=== PATIENT | female | born 1935 | race Caucasian/White ===

== ENCOUNTER → 2024-01-06 09:57 | Outpatient (REF) | payer MEDICARE, SELFPAY ==
[2024-01-06 12:23] LABS: Free T4 1.34 ng/dl (0.78-2.19)
== END ==
LOC: OLABPV 09:57
PROVIDERS: ATTENDING PHYSICIAN Internal Medicine Endocrinology, Diabetes & Metabolism; FAMILY PHYSICIAN Nurse Practitioner Adult Health
DX: E04.2 Nontoxic multinodular goiter (principal); E06.3 Autoimmune thyroiditis
CPT/HCPCS: 36415; 84439; 84443

== ENCOUNTER → 2024-01-26 10:06 | Outpatient (REF) | payer MEDICARE, SELFPAY | LOC: RCS 10:06 | PROVIDERS: ATTENDING PHYSICIAN Internal Medicine Interventional Cardiology; FAMILY PHYSICIAN Nurse Practitioner Adult Health | DX: I10 Essential (primary) hypertension (principal); E78.2 Mixed hyperlipidemia; I48.0 Paroxysmal atrial fibrillation | CPT/HCPCS: 93308; 93321; 93325 ==

== ENCOUNTER 2024-02-20 08:28 | Emergency (ER) | payer MEDICARE, SELFPAY ==
[2024-02-20] VITALS (7 sets, daily range): BP systolic 134–155; BP diastolic 68–92; BMI 30.7
--- NOTE | 2024-02-20 09:20 | ED.GENMED ---
History of Present Illness
General
Chief Complaint: Abdominal Symptoms
Time Seen by Provider: 02/20/24 09:05
Travel History
Have you had any contact with someone who has COVID-19?: No
Do you have any symptoms of coronavirus? Fever > 100 degrees, chills, cough, shortness of breath, sore throat, loss of taste or smell, muscle aches, or headache?: No
History of Present Illness
History of Present Illness:
88-year-old female with history of PE on Eliquis presents to the emergency department for evaluation of lower abdominal pain ongoing for the past week. She notes shaking chills last night and large-volume hematochezia this morning. Denies any
objective fever, chest pain, shortness of breath, nausea, or vomiting. No history of abdominal surgeries.
Past History
Past History
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
thyroidectomy in 2013, ESTEVAN on CPAP)
ED Past Surgical History: Other ( IVC filter status post removal in 2012, partial thyroidectomy in 2013)
Social History
Tobacco: Non-smoker
Alcohol: None
Drug: None
Personal:
Living: with family
Family History
Family History: Other (nc)
Review of Systems
Review of Systems
Allergies reviewed?: Yes
All Other Systems: ROS reviewed and negative except as documented in HPI and ROS
Phy Exam
Physical Exam
Physical Exam:
GEN: Well appearing, NAD, WDWN
Eyes: PERRLA, EOMs intact, no scleral icterus
HENT: NCAT, oral mucosa moist
Lungs: CTAB, no wheezes, rales, rhonchi, normal chest wall excursion
Cardiac: Tachycardic, regular, no M/R/G, no peripheral edema. Radial pulses 2+ bilat
Abdomen: S, NT, ND, NABS, no masses or hepatosplenomegaly
Neuro: AO x 3
MSK: No gross deformity or ecchymosis. No edema. No digital clubbing
Skin: No rashes, petechiae. Normal color, no pallor or jaundice.
Psych: Calm, cooperative, proper hygiene
Course
Orders/Labs/Results
Orders:
Orders
02/20/24 09:18
CT Abd/Pel (IV only)-DH only Urgent
Comment:
Reason For Exam: suprapubic pain/hematochezia
0.9% Sodium Chloride 1000 ml [Nss] 1,000 ml IV BOLUS
02/20/24 09:24
Complete Blood Count/With Diff Urgent
Comprehensive Metabolic Panel Urgent
Lactic Acid Urgent
Lipase Urgent
02/20/24 12:03
Stool Culture Urgent
IAM Source: Feces/Stool
Specimen Description:
02/20/24 12:05
Amoxicillin 875 mg/Clav 125 mg [Augmentin 875 mg/125 mg] 1 tablet PO NOW STA
Abnormal Lab Results
02/20/24
09:24
MCHC 32.2 L g/dL
(33.0-37.0)
Absolute Lymphs (auto) 0.9 L 10^3/uL
(1.2-3.4)
Neutrophils % 77.2 H %
(42.2-75.2)
Lymphocytes % 15.4 L %
(20.5-51.1)
BUN 18 H mg/dl
(7-17)
Glucose 134 H mg/dl
(70-99)
02/20/24 09:24
02/20/24 09:24
Vital Signs
Initial and Last Documented VS:
Initial Vital Signs
Temp Pulse Resp BP Pulse Ox
97.7 F 111 18 138/92 96
02/20/24 08:30 02/20/24 08:30 02/20/24 08:30 02/20/24 08:30 02/20/24 08:30
Last Documented Vital Signs
Temp Pulse Resp BP Pulse Ox
97.7 F 97 14 154/76 96
02/20/24 09:14 02/20/24 11:00 02/20/24 11:00 02/20/24 11:00 02/20/24 11:00
MDM/Problems Addressed
MDM/Problems Addressed:
Patient's labs are reassuring. Her workup reveals uncomplicated colitis. We did attempt to obtain a stool specimen in the emergency department however the patient was unable to provide an adequate specimen as it was contaminated with urine. Will
start her on empiric Augmentin, discussed use of brat diet and primary care follow-up. Encouraged emergency department return should her symptoms worsen particularly hematochezia given her anticoagulant use
*Critical Care Note
Total Time (30-74mins, 75-104mins- exclusive of procedures): Not Applicable
ED Attending Note
-
Portions of this chart may have been created with voice recognition software.� Occasional wrong word or��sound alike� substitutions may have occurred due to the inherent limitations of voice recognition software.
Discharge Plan
Departure
Patient Disposition: Home (Routine Discharge)
Date of Disposition: 02/20/24
Time of Disposition: 12:04
Patient with high blood pressure during this ER visit?: No
Discharge Problem:
Colitis
Instructions: Colitis (DC)
Prescriptions:
New
amoxicillin-pot clavulanate 875-125 mg tablet
1 tab PO BID 7 Days Qty: 14 0RF
No Action
polyethylene glycol 3350 17 GRAMS powder in packet
17 grams PO DAILY
pravastatin 10 MG tablet
10 mg PO QPM
levothyroxine 25 MCG tablet
25 mcg PO DAILY
multivitamin Tablet
1 tab PO DAILY
omega-3 fatty acids Capsule
1,000 mg PO DAILY
Hold Instructions: Resume on 09/21/22.
metoprolol tartrate 25 mg tablet
25 mg PO BID Qty: 60 0RF
Patient Comments:
patient does not believe she takes this medication
Eliquis 5 mg tablet
5 mg PO BID Qty: 60 0RF
docusate sodium [Colace] 100 mg capsule
100 mg PO DAILY
acetaminophen [Acetaminophen Extra Strength] 500 mg tablet
1,000 mg PO Q6H PRN (Reason: as directed)
Rx Instructions:
DO NOT exceed >4000 mg daily.
Referrals:
Latasha Wong CRNP [Family Provider] -
Interventions
Interventions:
*Risk Screen - Suicide Last Done: 02/20/24 08:30
*General Assessment Last Done: 02/20/24 08:30
*Neglect/Abuse Screening Last Done: 02/20/24 09:08
ED- Fall Risk Assessment Last Done: 02/20/24 09:11
*ED COVID-19 Vaccine History Last Done: 02/20/24 08:30
W[place]-Gsblks-Jcakwzjnhk Assessment Last Done: 02/20/24 09:15
Discharge Date and Time
Print Language: [place]
[2024-02-20] MEDS: NSS 1000 IV (09:24)
[2024-02-20 09:52] LABS: % Basophils 0.2 % (0-2); % Eosinophils 1.2 % (0-6); % Immature Granulocytes 0.2 % (0-0.5); % Lymphocytes 15.4 % (20.5-51.1); % Monocytes 5.8 % (1.7-9.3); % Neutrophils 77.2 % (42.2-75.2); Absolute Eosinophils 0.1 10^3/uL (0-0.7); Absolute Lymphocytes 0.9 10^3/uL (1.2-3.4); Absolute Monocytes 0.3 10^3/uL (0.1-0.6); Absolute Neutrophils 4.4 10^3/uL (1.4-6.5); Hematocrit 42.3 % (37.0-47.0); Hemoglobin 13.6 g/dL (12.0-16.0); Mean Corp Hgb Conc. 32.2 g/dL (33.0-37.0); Mean Corpuscular Hgb 27.8 pg (27.0-31.0); Mean Corpuscular Volume 86.5 fL (81.0-99.0); Mean Platelet Volume 10.2 fL (7.4-10.4); Nucleated Red Blood Cells % 0 %; Platelet Count 162 10^3/uL (130-400); Red Blood Cell Count 4.89 10^6/uL (4.20-5.40); Red Cell Dist. Width 13.4 % (11.5-14.5); White Blood Cell Count 5.7 10^3/uL (4.8-10.8)
[2024-02-20 09:58] LABS: ALT (SGPT) 18 U/L (0-35); AST (SGOT) 31 U/L (14-36); Albumin 3.7 g/dl (3.5-5.0); Alkaline Phosphatase 95 U/L (38-126); Blood Urea Nitrogen 18 mg/dl (7-17); Calcium 9.5 mg/dl (8.4-10.2); Carbon Dioxide 29 mmol/L (22-30); Chloride 100 mmol/L (98-107); Estimated Creatinine Clearance 69 ml/min; Glucose 134 mg/dl (70-99); Lipase 151 U/L (23-300); Potassium 4.3 mmol/L (3.5-5.1); Sodium 135 mmol/L (135-145); Total Bilirubin 0.3 mg/dl (0.2-1.3); Total Protein 6.9 g/dl (6.3-8.2); eGFR > 60.00
[2024-02-20 10:06] LABS: Lactic Acid 0.9 mmol/L (0.7-2.0)
[2024-02-20] MEDS: AUGMENTIN 875 MG/125 MG 1 TABLET PO (12:20)
== END 2024-02-20 12:30 | disposition home or self-care (01) ==
LOC: EMR 08:28
PROVIDERS: Physician Assistant; EMERGENCY PHYSICIAN Emergency Medicine; FAMILY PHYSICIAN Nurse Practitioner Adult Health
DX: K52.9 Noninfective gastroenteritis and colitis, unspecified (principal); K21.9 Gastro-esophageal reflux disease without esophagitis; E78.00 Pure hypercholesterolemia, unspecified; G47.33 Obstructive sleep apnea (adult) (pediatric); Z79.01 Long term (current) use of anticoagulants; Z86.711 Personal history of pulmonary embolism; Z96.653 Presence of artificial knee joint, bilateral
CPT/HCPCS: 99284; 96360; 74177; 80053; 83605; 83690; 85025; Q9967

== ENCOUNTER → 2024-03-27 15:35 | Outpatient (REF) | payer MEDICARE, SELFPAY ==
[2024-03-27 16:10] LABS: ALT (SGPT) 16 U/L (0-35); AST (SGOT) 31 U/L (14-36); Albumin 3.8 g/dl (3.5-5.0); Alkaline Phosphatase 77 U/L (38-126); Blood Urea Nitrogen 17 mg/dl (7-17); Calcium 9.3 mg/dl (8.4-10.2); Carbon Dioxide 31 mmol/L (22-30); Chloride 100 mmol/L (98-107); Glucose 98 mg/dl (70-99); HDL Cholesterol 47 mg/dl; Iron 93 ug/dl (37-170); LDL Cholesterol, Calculated 144 mg/dl; Potassium 4.7 mmol/L (3.5-5.1); Sodium 133 mmol/L (135-145); Total Bilirubin 0.4 mg/dl (0.2-1.3); Total Cholesterol 216 mg/dl (50-199); Total Protein 6.8 g/dl (6.3-8.2); Triglyceride 125 mg/dl (10-149); Very Low Density Lipoprotein 25 mg/dl (0-30); eGFR > 60.00
[2024-03-27 16:15] LABS: % Basophils 0.3 % (0-2); % Eosinophils 6.8 % (0-6); % Lymphocytes 38.1 % (20.5-51.1); % Monocytes 9.8 % (1.7-9.3); Absolute Eosinophils 0.2 10^3/uL (0-0.7); Absolute Lymphocytes 1.3 10^3/uL (1.2-3.4); Absolute Monocytes 0.3 10^3/uL (0.1-0.6); Absolute Neutrophils 1.5 10^3/uL (1.4-6.5); Hematocrit 40.1 % (37.0-47.0); Hemoglobin 13.1 g/dL (12.0-16.0); Mean Corp Hgb Conc. 32.7 g/dL (33.0-37.0); Mean Corpuscular Hgb 27.9 pg (27.0-31.0); Mean Corpuscular Volume 85.5 fL (81.0-99.0); Mean Platelet Volume 11.3 fL (7.4-10.4); Nucleated Red Blood Cells % 0 %; Platelet Count 188 10^3/uL (130-400); Red Blood Cell Count 4.69 10^6/uL (4.20-5.40); Red Cell Dist. Width 13.8 % (11.5-14.5); White Blood Cell Count 3.4 10^3/uL (4.8-10.8)
[2024-03-27 16:19] LABS: Percent Saturation 29 % (20-50); Total Iron Binding Capacity 317 ug/dl (265-497)
[2024-03-27 16:48] LABS: Vitamin D, 25-OH*** 53.3 ng/mL (30-80)
[2024-03-27 17:02] LABS: TSH Reflex To Free T4 3.75 uIU/ml (0.47-4.68)
[2024-03-27 17:21] LABS: Vitamin B12 914 pg/ml (239-931)
[2024-03-28 11:09] LABS: Glycohemoglobin (HgbA1c) 5.9 % (4.0-5.6)
== END ==
LOC: OLABPV 15:35
PROVIDERS: ATTENDING PHYSICIAN Nurse Practitioner Adult Health
DX: E89.0 Postprocedural hypothyroidism (principal); Z00.00 Encounter for general adult medical examination without abnormal findings; R41.3 Other amnesia; E78.00 Pure hypercholesterolemia, unspecified; R73.09 Other abnormal glucose; R19.5 Other fecal abnormalities; E53.8 Deficiency of other specified B group vitamins; Z79.899 Other long term (current) drug therapy; E55.9 Vitamin D deficiency, unspecified
CPT/HCPCS: 36415; 80053; 80061; 82306; 82607; 83036; 83540; 83550; 84443; 85025

== ENCOUNTER 2024-06-16 14:24 | Emergency (ER) | payer MEDICARE, SELFPAY ==
[2024-06-16 14:30] VITALS: BP 142/63
--- NOTE | 2024-06-16 16:14 | ED.GENMED ---
History of Present Illness
General
Chief Complaint: Fall
Source: patient and spouse
Exam Limitations: none
Time Seen by Provider: 06/16/24 15:07
Nursing documentation reviewed up to this point in time: agreed with
History of Present Illness
History of Present Illness:
89-year-old female presenting to the emergency department after trip and fall hitting her right forehead no loss of consciousness patient is on Eliquis. Denies any additional symptoms but has had bleeding to her right forehead. Recent tetanus shot
a few months ago. No neck pain numbness or weakness no chest pain
Past History
Past History
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
thyroidectomy in 2013, ESTEVAN on CPAP)
ED Past Surgical History: Other ( IVC filter status post removal in 2012, partial thyroidectomy in 2013)
Social History
Tobacco: Non-smoker
Alcohol: None
Drug: None
Personal:
Living: with family
Family History
Family History: Other (nc)
Review of Systems
Review of Systems
Allergies reviewed?: Yes
All Other Systems: ROS reviewed and negative except as documented in HPI and ROS
Phy Exam
Physical Exam
Physical Exam:
GENERAL: Alert , in no apparent distress
EYE: pupils equal and reactive
NECK: Supple, no significant adenopathy.
ENT: Laceration to the right forehead surrounded by abrasion roughly 3 cm in length. Subcutaneous in depth, o/p clr, mmm.
CARDIAC: Regular rate and rhythm .
LUNGS: Clear breath sounds bilaterally, no acute respiratory distress, no wheezes/rales/rhonchi
ABDOMEN: Soft, without focal tenderness, no r/g, no cvat
NEUROLOGICAL: Alert and oriented, no focal neuro deficits
SKIN: Warm and dry, skin intact.
MUSCULOSKELETAL: No edema, well perfused.
PSYCH: Normal and appropriate interaction.
Course
Orders/Labs/Results
Orders:
Orders
06/16/24 14:32
CT Head W/o Iv Contrast Urgent
Comment:
Reason For Exam: fell hit head on bld thinner for hx of bld clots
Vital Signs
Initial and Last Documented VS:
Initial Vital Signs
Temp Pulse Resp BP Pulse Ox
98.3 F 85 16 142/63 98
06/16/24 14:30 06/16/24 14:30 06/16/24 14:30 06/16/24 14:30 06/16/24 14:30
Last Documented Vital Signs
Temp Pulse Resp BP Pulse Ox
98.3 F 78 18 152/72 98
06/16/24 14:30 06/16/24 16:41 06/16/24 16:41 06/16/24 16:41 06/16/24 16:41
Procedures
Laceration Closure
Right Superior Anterior Lateral Face:
Status of Wound: clean
Size of Wound in cm: 3
Description of Wound Edges: surrounded by abrasion
Preparation: cleaned with saline
Anesthesia: 1% Lidocaine with epi
Revision/Debridement: minor revision and irrigate-direct pressure
Wound exploration: explored to base- no FB and no tendon involvement
Type of Closure: single layer closure and interrupted sutures
Skin Closure Material: 5-0 chromic gut
Number of sutures: 4
MDM/Problems Addressed
MDM/Problems Addressed:
89-year-old female presenting to the emergency department today after mechanical fall. Head CT performed that did not show any emergent findings but patient did have a laceration requiring closure. 4 dissolving stitches placed area was covered
with a clean bandage otherwise no emergent findings on examination stable for discharge. Return precautions given.
*Critical Care Note
Total Time (30-74mins, 75-104mins- exclusive of procedures): Not Applicable
ED Attending Note
-
Portions of this chart may have been created with voice recognition software.� Occasional wrong word or��sound alike� substitutions may have occurred due to the inherent limitations of voice recognition software.
Discharge Plan
Departure
Patient Disposition: Home (Routine Discharge)
Date of Disposition: 06/16/24
Time of Disposition: 16:14
Patient with high blood pressure during this ER visit?: No
Condition: Good
Covid-19: Not Applicable
Discharge Problem:
Forehead laceration
Instructions: Laceration Repair With Stitches (DC), Preventing falls in adults
Prescriptions:
No Action
polyethylene glycol 3350 17 GRAMS powder in packet
17 grams PO DAILY
pravastatin 10 MG tablet
10 mg PO QPM
levothyroxine 25 MCG tablet
25 mcg PO DAILY
multivitamin Tablet
1 tab PO DAILY
omega-3 fatty acids Capsule
1,000 mg PO DAILY
metoprolol tartrate 25 mg tablet
25 mg PO BID Qty: 60 0RF
Patient Comments:
patient does not believe she takes this medication
Eliquis 5 mg tablet
5 mg PO BID Qty: 60 0RF
docusate sodium [Colace] 100 mg capsule
100 mg PO DAILY
acetaminophen [Acetaminophen Extra Strength] 500 mg tablet
1,000 mg PO Q6H PRN (Reason: as directed)
Rx Instructions:
DO NOT exceed >4000 mg daily.
amoxicillin-pot clavulanate 875-125 mg tablet
1 tab PO BID 7 Days Qty: 14 0RF
Referrals:
Latasha Wong CRNP [Family Provider] -
Activity Restrictions/Additional Instructions:
You came to the emergency department today for concerns of a laceration to your right sided forehead after a fall. You had a CT scan without signs of internal injury. You had 4 dissolving stitches placed. Please keep the area clean covered and
follow-up closely with your primary care doctor. Return to the emergency department any worsening, new or concerning symptoms.
Interventions
Interventions:
*Risk Screen - Suicide Last Done: 06/16/24 14:30
*Neglect/Abuse Screening Last Done: 06/16/24 14:30
*Nursing Disposition Last Done: 06/16/24 16:41
ED-Musculoskeletal Assessment Last Done: 06/16/24 15:49
ED- Neurological Assessment Last Done: 06/16/24 15:49
ED-Skin Assessment Last Done: 06/16/24 15:49
Discharge Date and Time
Discharge Date/Time: 06/16/24 16:42
Print Language: SYRI[place]
[2024-06-16 16:41] VITALS: BP 152/72
== END 2024-06-16 16:42 | disposition home or self-care (01) ==
LOC: EMR 14:24
PROVIDERS: EMERGENCY PHYSICIAN Emergency Medicine; FAMILY PHYSICIAN Nurse Practitioner Adult Health
DX: S01.81XA Laceration without foreign body of other part of head, initial encounter (principal); W01.0XXA Fall on same level from slipping, tripping and stumbling without subsequent striking against object, initial encounter; K21.9 Gastro-esophageal reflux disease without esophagitis; E78.00 Pure hypercholesterolemia, unspecified; M19.072 Primary osteoarthritis, left ankle and foot; G47.33 Obstructive sleep apnea (adult) (pediatric); Z96.653 Presence of artificial knee joint, bilateral
CPT/HCPCS: 99284; 12013; 70450

== ENCOUNTER → 2024-09-21 10:56 | Outpatient (REF) | payer MEDICARE, SELFPAY ==
[2024-09-21 11:48] LABS: % Basophils 0.5 % (0-2); % Eosinophils 5.9 % (0-6); % Immature Granulocytes 0.2 % (0-0.5); % Lymphocytes 43.8 % (20.5-51.1); % Neutrophils 42.6 % (42.2-75.2); Absolute Eosinophils 0.3 10^3/uL (0-0.7); Absolute Lymphocytes 1.9 10^3/uL (1.2-3.4); Absolute Monocytes 0.3 10^3/uL (0.1-0.6); Absolute Neutrophils 1.8 10^3/uL (1.4-6.5); Hematocrit 43.9 % (37.0-47.0); Hemoglobin 13.5 g/dL (12.0-16.0); Mean Corp Hgb Conc. 30.8 g/dL (33.0-37.0); Mean Corpuscular Hgb 27.3 pg (27.0-31.0); Mean Corpuscular Volume 88.9 fL (81.0-99.0); Mean Platelet Volume 11.3 fL (7.4-10.4); Nucleated Red Blood Cells % 0 %; Platelet Count 194 10^3/uL (130-400); Red Blood Cell Count 4.94 10^6/uL (4.20-5.40); Red Cell Dist. Width 14.1 % (11.5-14.5); White Blood Cell Count 4.3 10^3/uL (4.8-10.8)
[2024-09-21 11:54] LABS: ALT (SGPT) 18 U/L (0-35); AST (SGOT) 32 U/L (14-36); Albumin 3.7 g/dl (3.5-5.0); Alkaline Phosphatase 75 U/L (38-126); Blood Urea Nitrogen 26 mg/dl (7-17); Carbon Dioxide 29 mmol/L (22-30); Chloride 102 mmol/L (98-107); Glucose 110 mg/dl (70-99); HDL Cholesterol 47 mg/dl; LDL Cholesterol, Calculated 76 mg/dl; Potassium 4.1 mmol/L (3.5-5.1); Sodium 136 mmol/L (135-145); Total Bilirubin 0.3 mg/dl (0.2-1.3); Total Cholesterol 153 mg/dl (50-199); Total Protein 6.7 g/dl (6.3-8.2); Triglyceride 153 mg/dl (10-149); Very Low Density Lipoprotein 30 mg/dl (0-30); eGFR > 60.00
[2024-09-21 12:57] LABS: TSH Reflex To Free T4 6.33 uIU/ml (0.47-4.68)
[2024-09-21 14:24] LABS: Free T4 1.32 ng/dl (0.78-2.19)
== END ==
LOC: OLABPV 10:56
PROVIDERS: ATTENDING PHYSICIAN Internal Medicine Interventional Cardiology
DX: E78.2 Mixed hyperlipidemia (principal); I10 Essential (primary) hypertension; R73.03 Prediabetes; E89.0 Postprocedural hypothyroidism
CPT/HCPCS: 36415; 80053; 80061; 83036; 84439; 84443; 85025